=== PATIENT | female | born 1955 | race Caucasian/White ===

== ENCOUNTER → 2018-05-03 | Outpatient (CLI) | payer OTHER ==
[2016-01-10 13:06] VITALS: BP 185/93
[~2018-05-03] MED LIST: ESTR1TAB3 PO; THYR60TA PO; VALS80TA3 PO
--- NOTE | 2018-05-03 13:06 | KCIC ---
Bilateral digital screening mammograms: Reason for examination: Routine screening. History of benign right breast biopsy. Comparison is made to previous studies dated 01/10/2016 and 12/12/2015. Interpretation was made with the benefit of CAD. The skin and nipples show no abnormalities. No abnormal axillary lymph nodes are seen. The breast parenchyma shows scattered fibroglandular density. (Breast density: Category B.) There continues to be a 1 cm nodule present at the 9:00 C position of the right breast contained a biopsy clip. This has shown a decrease in size since previous exam consistent with history of biopsy. The left breast however appears to show a new nodular area of parenchymal density at the 11:30 B position. Further evaluation with coned compression views and ultrasound is recommended. There are no other new dominant masses, suspicious calcifications or architectural distortions. Impression: 1 cm nodule in the 9:00 C position of the right breast contained a biopsy clip and short decrease in size postbiopsy. New nodular parenchymal density at approximately the 11:30 B position of the left breast. Recommend further evaluation with coned compression views and ultrasound. BI-RADS Category 0: Incomplete. Needs additional imaging evaluation. "Our facility is accredited by the [employer] Mammography [employer]." This patient's information has been entered into a reminder system for the patient to be notified with the results of her examination and a target date for the next mammogram. Electronically signed by: Alyse Sousa MD (05/03/2018 1:03 PM) [id number]
== END | disposition home or self-care (01) ==
LOC: KCIC MAMMO 10:18
PROVIDERS: ATTEND Family Medicine
DX: Z12.31 Encounter for screening mammogram for malignant neoplasm of breast (principal)
CPT/HCPCS: 77067

== ENCOUNTER → 2018-05-12 | Outpatient (CLI) | payer OTHER ==
[2016-01-10 13:06] VITALS: BP 185/93
--- NOTE | 2018-05-13 13:23 | KCIC ---
Left breast diagnostic digital mammograms: Reason for examination: Nodular asymmetry on screening mammogram. Comparison is made to mammographic exam dated 05/03/2018. Coned compression views were obtained in CC and oblique projections. With these additional views, the area of nodularity does not appear to be as focal or as prominent. Further evaluation however with ultrasound will follow. IMPRESSION: Decreased prominence of the area of nodularity seen in the left breast which may represent superimposed tissues. Ultrasound to follow. BI-RADS Category 0: Incomplete. Needs additional imaging evaluation. Left breast ultrasound: Ultrasound examination of the left breast was performed with attention to the area of mammographic concern and the left axilla. In the 12:00 position 5 cm from the nipple, there is some minimal fibrocystic type changes with a fibrocystic lesion measuring 5.6 mm in greatest dimension. No suspicious nodules are seen. No abnormal appearing lymph nodes are seen in the axilla. IMPRESSION: Fibrocystic changes of the 12:00 position which probably corresponds to the area of mammographic concern. No suspicious abnormalities are seen. Recommend 6 month follow-up with left breast mammograms and ultrasound. BI-RADS Category 3: Probably Benign. "Our facility is accredited by the [employer] Mammography [employer]." This patient's information has been entered into a reminder system for the patient to be notified with the results of her examination and a target date for the next mammogram. Electronically signed by: Alyse Sousa MD (05/13/2018 1:20 PM) [id number]
== END | disposition home or self-care (01) ==
LOC: KCIC MAMMO 09:51
PROVIDERS: ATTEND Family Medicine
DX: R92.8 Other abnormal and inconclusive findings on diagnostic imaging of breast (principal)
CPT/HCPCS: 76641; 77065

== ENCOUNTER → 2018-11-08 | Outpatient (CLI) | payer OTHER ==
[2016-01-10 13:06] VITALS: BP 185/93
[~2018-11-08] MED LIST changes: -ESTR1TAB3 PO; +PREMPRO 0.3 MG1 EACH PO
--- NOTE | 2018-11-08 16:05 | KCIC ---
Left breast diagnostic digital mammograms: Reason for examination: Follow up parenchymal density. Comparison is made to previous studies dated 05/12/2018 and 05/03/2018 and 12/26/2015. Interpretation was made with the benefit of CAD. The skin and nipple show no abnormalities. No abnormal axillary lymph nodes are seen. The breast parenchyma shows scattered fibroglandular density. (Breast density: Category B.) There is improvement in the nodularity suggested previously in the 11:30 B position of the left breast. There are no new dominant masses, suspicious calcifications or architectural distortions. Impression: Improved appearance to the nodularity at the 11:30 B position of the left breast. Ultrasound to follow. BI-RADS Category 0: Incomplete. Needs additional imaging evaluation. Left breast ultrasound: Comparison is made to previous examination dated 05/12/2018. Ultrasound examination was performed in the area of mammographic concern and at the axilla. There is ductal ectasia in the retroareolar 3:00 position in the 12:00 position 5 cm from the nipple, there continues to be a small patch of fibrocystic change measuring 6.1 mm in greatest dimension which is stable. No new cystic or solid lesions are seen. No abnormal appearing lymph nodes are seen in the axilla. IMPRESSION: Ductal ectasia in the retroareolar 3:00 position. Fibrocystic changes in the 12:00 position. No suspicious abnormality seen. Recommend routine mammographic follow-up. BI-RADS Category 2: Benign. "Our facility is accredited by the [employer] Mammography [employer]." This patient's information has been entered into a reminder system for the patient to be notified with the results of her examination and a target date for the next mammogram. Electronically signed by: Alyse Sousa MD (11/08/2018 4:02 PM) [place] [id number]
== END | disposition home or self-care (01) ==
LOC: KCIC MAMMO 12:49
PROVIDERS: ATTEND Family Medicine
DX: D24.9 Benign neoplasm of unspecified breast (principal); N60.42 Mammary duct ectasia of left breast
CPT/HCPCS: 76641; 77065

== ENCOUNTER → 2018-11-16 | Outpatient (CLI) | payer OTHER ==
[2016-01-10 13:06] VITALS: BP 185/93
--- NOTE | 2018-11-16 17:26 | KCIC ---
EXAM: AP and frog-leg lateral views of the right hip DATE: 11/16/2018 12:00 AM INDICATION: Right hip pain for 8 months COMPARISON: No Prior FINDINGS: No evidence of acute fracture or dislocation. Decreased bone mineral density. Small os acetabuli is seen. Small right femoral head/neck junction osteophytes are seen. IMPRESSION: 1. 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 2. No evidence of acute fracture or dislocation. 3. Decreased bone mineral density. Electronically signed by: Tyler Lazaro MD (11/16/2018 5:23 PM) [facility]
== END | disposition home or self-care (01) ==
LOC: KCIC 11:04
PROVIDERS: ATTEND Family Medicine
DX: M16.11 Unilateral primary osteoarthritis, right hip (principal); M25.751 Osteophyte, right hip
CPT/HCPCS: 73502

== ENCOUNTER → 2019-05-12 | Outpatient (CLI) | payer OTHER ==
[2016-01-10 13:06] VITALS: BP 185/93
--- NOTE | 2019-05-12 13:50 | KCIC ---
EXAM: Bilateral digital screening mammogram with tomosynthesis. HISTORY: 63-year-old female presents for screening mammography. TECHNIQUE: Full-field digital craniocaudal and mediolateral oblique 2D and 3D tomosynthesis images of both breasts are obtained for evaluation. Computer aided detection with Cambiat[employer] software version 9.3 was applied. COMPARISON: 11/08/2018 and 05/12/2018 BREAST PARENCHYMAL DENSITY: Level B - Scattered fibroglandular densities. FINDINGS: There is no new suspicious mass, microcalcification or region of architectural distortion. There is a stable nodule containing a biopsy clip within the posterior 9:00 position of the right breast. There is a stable tiny cluster of benign-appearing microcalcifications with associated nodule within the 1:00 to 2:00 position of the left breast. IMPRESSION: BI-RADS Category 2: Benign finding(s). RECOMMENDATION: Annual mammography is recommended. If your mammogram demonstrates that you have dense breast tissue, which could hide abnormalities, and if you have other risk factors for breast cancer that have been identified, you might benefit from supplemental screening tests that may be suggested by your ordering physician. Dense breast tissue, in and of itself, is a relatively common condition. This information is not provided to cause undue concern, but rather to raise your awareness and to promote discussion with your physician regarding the presence of other risk factors, in addition to dense breast tissue. A report of your mammography results will be sent to you and your physician. You should contact your physician if you have any questions or concerns regarding this report. Mammography is a sensitive method for finding small breast cancers, but it does not detect them all and is not a substitute for careful clinical examination. A negative mammogram does not negate a clinically suspicious finding and should not result in delay in biopsying a clinically suspicious abnormality. PQRS compliance statement - Patient information was entered into a reminder system with a target due date for the next mammogram. "Our facility is accredited by the [employer] Mammography [employer]." Electronically signed by: Bria Prince MD (05/12/2019 1:47 PM) [id number]
--- NOTE | 2019-05-13 12:30 | KCIC ---
RS Compliance Statement: One or more of the following individualized dose reduction techniques were utilized for this examination: 1. Automated exposure control 2. Adjustment of the mA and/or kV according to patient size 3. Use of iterative reconstruction technique Coronary calcium score CT chest without contrast History: Cardiovascular screening. History of hypertension. Technique: With retrospective electrocardiogram gating axial reconstructed noncontrast images of the chest at the level of the coronary arteries was performed. Images were post processed on workstation and calcium score calculated using the modified Agatston Janowitz protocol. Findings: Total coronary calcium score is 0. This places the patient in the 0th percentile rank which means that 100% of females between the ages of 61-65 have a higher calcium score than this patient. This is a no identifiable plaque burden and very low cardiovascular disease risk. This is based on the calcium score of 0 of the left main coronary artery, 0 of the left anterior descending artery, score of 0 of the left circumflex artery and score of 0 of the right coronary artery. Noncoronary findings demonstrate right convexity thoracic scoliosis. The visualized upper abdomen is unremarkable. Tortuous thoracic aorta. Great vessels are normal caliber. Cardiac size is normal. No pericardial effusion. There is no pleural effusion. The central airways are patent. Visualized lung bases are essentially clear. IMPRESSION: Patient's total calcium score is 0. Electronically signed by: Get Montejo MD (05/13/2019 12:27 PM) [id number]
== END | disposition home or self-care (01) ==
LOC: KCIC MAMMO 12:24
PROVIDERS: ATTEND Family Medicine
DX: Z12.31 Encounter for screening mammogram for malignant neoplasm of breast (principal); Z13.6 Encounter for screening for cardiovascular disorders; I25.10 Atherosclerotic heart disease of native coronary artery without angina pectoris; N64.89 Other specified disorders of breast; I10 Essential (primary) hypertension; M41.84 Other forms of scoliosis, thoracic region
CPT/HCPCS: 75571; 77063; 77067

== ENCOUNTER → 2020-08-16 | Outpatient (CLI) | payer OTHER ==
[2016-01-10 13:06] VITALS: BP 185/93
--- NOTE | 2020-08-16 14:53 | KCIC ---
Bilateral digital screening mammograms with 3-D tomosynthesis: Reason for examination: Routine screening. Comparison is made to previous studies dated back to 12/12/2015. Bilateral mammograms in CC and oblique projections were obtained with 2-D imaging and 3-D tomosynthesis imaging on a Siemens Inspiration unit and reviewed on the workstation. Interpretation was made with the benefit of CAD. The skin and nipples show no abnormalities. No abnormal axillary lymph nodes are seen. The breast parenchyma shows scattered fatty and fibroglandular density. (Breast density: Category B.) There continues to be a nodule at the 9:00 C position of the right breast which contains a biopsy clip and is stable. There continues to be a small nodular density in the inferior right breast seen best on oblique view which is stable. There continue to be some faint calcifications clustered in the superior left breast seen only on oblique projection which appear to be stable. These are not identified on cc view however and may represent milk of calcium. There are no new dominant masses, suspicious calcifications or architectural distortion. Impression: No evidence of malignancy. Recommend routine screening. BI-RAD Category 2: Benign. "Our facility is accredited by the [employer] Mammography Program." This patient's information has been entered into a reminder system for the patient to be notified with the results of her examination and a target date for the next mammogram. Electronically signed by: Alyse Sousa MD (08/16/2020 2:51 PM) [id number]
== END ==
LOC: KCIC MAMMO 13:14
PROVIDERS: ATTEND Family Medicine
DX: Z12.31 Encounter for screening mammogram for malignant neoplasm of breast (principal)
CPT/HCPCS: 77063; 77067